=== PATIENT | male | born 1985 | race Caucasian/White ===

== ENCOUNTER 2023-07-13 20:13 | Emergency (ER) | payer BC, OTHER ==
[2023-07-13] MEDS ORDERED: Sodium Chloride 0.9% 10 ML Syringe FLUSH PRN (21:18)
[2023-07-13] MEDS ORDERED: Vancomycin 2 GM in Sodium Chloride 0.9% 500 ML IV ONE (21:29)
[2023-07-13] MEDS ORDERED: Sodium Chloride 0.9% 1,000 ML IV ONE (21:34)
[2023-07-13] MEDS ORDERED: Water For Injection, Sterile 40 ML ONE (21:36)
[2023-07-13] MEDS ORDERED: Vancomycin 1 GM SDV ONE (21:36)
[2023-07-13 21:40] LABS: BASOPHILS PERCENT AUTO 0.2 % (0.1-1.3); HEMATOCRIT 40.6 % (38.4-49.7); HEMOGLOBIN 14.5 g/dL (12.9-16.9); IMMATURE GRAN ABSOLUTE AUTO 0.07 K/uL (0.00-0.23); IMMATURE GRAN PERCENT AUTO 0.5 % (0.0-0.7); LYMPHOCYTES ABSOLUTE AUTO 0.51 K/uL (0.8-3.3); MEAN CORPUSCULAR HEMOGLOBIN 32.3 pg (31.6-35.5); MEAN CORPUSCULAR HGB CONC 35.7 g/dL (31.6-35.5); MEAN CORPUSCULAR VOLUME 90.4 fL (81.4-99.0); MONOCYTES PERCENT AUTO 2.3 % (3.3-12.6); NEUTROPHILS ABSOLUTE AUTO 11.93 K/uL (1.0-7.6); PLATELET COUNT,PLT 143 K/uL (130-375); RED BLOOD CELL COUNT 4.49 M/uL (4.14-5.76); WHITE BLOOD CELL COUNT,WBC 12.8 K/uL (3.2-11.0)
[2023-07-13 21:58] LABS: BASOPHILS ABSOLUTE AUTO 0.02 K/uL (0.00-0.10); C-REACTIVE PROTEIN 9.08 mg/dL (0.0-0.3); CALCIUM 8.7 mg/dL (8.5-10.1); CREATININE 1.1 mg/dL (0.8-1.3); EST CRCL DRUG DOSING (CG) 96.03 mL/min; POTASSIUM,K 4.1 mmol/L (3.6-5.2)
[2023-07-13 21:59] LABS: ANION GAP 14.1 mmol/L (5.0-14.0)
== END 2023-07-14 00:01 | disposition home or self-care (01) ==
LOC: JP.ED 20:13
DX: L03.116 Cellulitis of left lower limb (principal)
CPT/HCPCS: 36415; 73590-26-LT; 73590-LT; 80048; 83605; 85025; 86140; 87040; 96365; 96366; 99283; 99283-25; J3370; J7030; J7040